=== PATIENT | female | born 1995 | race Asian ===

== ENCOUNTER 2021-04-19 14:07 | Emergency (ER) | payer MEDICAID, OTHER ==
[~2021-04-19] VITALS: Ht 152.4 cm; Wt 58.5 kg
[2021-04-19 15:45] VITALS: BP 100/92
[2021-04-19] MEDS ORDERED: cefTRIAXone SOD 1,000 MG VL IM ONE (16:30)
[2021-04-19] MEDS ORDERED: ACETAMINOPHEN 325 MG TAB PO ONE (16:30)
== END 2021-04-19 16:55 | disposition home or self-care (01) ==
LOC: ER 14:07
DX: M54.41 Lumbago with sciatica, right side (principal); N39.0 Urinary tract infection, site not specified
CPT/HCPCS: 96372; 99283; J0696

== ENCOUNTER 2021-06-05 09:37 | Observation (INO) | payer MEDICAID | END 2021-06-05 13:16 | disposition home or self-care (01) | LOC: LDRP 09:37 | PROVIDERS: ADMIT Obstetrics & Gynecology; ATTEND Obstetrics & Gynecology | DX: O36.5930 Maternal care for other known or suspected poor fetal growth, third trimester, not applicable or unspecified (principal); Z3A.35 35 weeks gestation of pregnancy | CPT/HCPCS: 59025; 76818; 81002; 94760; G0378; G0379 ==

== ENCOUNTER 2021-06-13 08:49 | Observation (INO) | payer MEDICAID ==
[~2021-06-13] VITALS: Ht 157.5 cm; Wt 65.8 kg
== END 2021-06-13 10:00 | disposition home or self-care (01) ==
LOC: LDRP 08:49
PROVIDERS: ADMIT Obstetrics & Gynecology; ATTEND Obstetrics & Gynecology
DX: O36.5930 Maternal care for other known or suspected poor fetal growth, third trimester, not applicable or unspecified (principal); Z3A.36 36 weeks gestation of pregnancy
CPT/HCPCS: 59025; 76818; 81002; 94760; G0378; G0379

== ENCOUNTER 2021-06-20 09:15 | Observation (INO) | payer MEDICAID | END 2021-06-20 10:55 | disposition home or self-care (01) | LOC: LDRP 09:15 | PROVIDERS: ADMIT Obstetrics & Gynecology; ATTEND Obstetrics & Gynecology | DX: O36.5930 Maternal care for other known or suspected poor fetal growth, third trimester, not applicable or unspecified (principal); O99.891 Other specified diseases and conditions complicating pregnancy; M54.9 Dorsalgia, unspecified; Z3A.37 37 weeks gestation of pregnancy | CPT/HCPCS: 59025; 76818; 81002; G0378; G0379 ==

== ENCOUNTER 2021-06-27 11:19 | Inpatient (IN) | payer MEDICAID ==
[~2021-06-27] VITALS: Ht 160 cm; Wt 67.6 kg
[2021-06-30] MEDS ORDERED: PREN-96 PO (15:00)
[2021-07-02] MEDS ORDERED: PROMETHAZINE HCL 25 MG/ML 1ML IV PRN (08:45)
[2021-07-02] MEDS ORDERED: PHISODERM TOP SOLN 240ML BTL TOP PRN (08:45)
[2021-07-02] MEDS ORDERED: BUTORPHANOL TARTRATE 2 MG/1 ML VIAL IV PRN ×2 (08:45)
[2021-07-02] MEDS ORDERED: LIDOCAINE 2%HCL (LOCAL ANESTH.) INJ 20ML MDV IJ PRN (08:45)
[2021-07-02] MEDS ORDERED: LACT. RINGERS/OXYTOCIN 20UNITS 1,000 ML IV ONE (09:36)
[2021-07-02] MEDS ORDERED: LACT. RINGERS/OXYTOCIN 20UNITS 500 ML IV ONE ×2 (09:45→10:15)
[2021-07-02 09:48] LABS: Basophils # (auto) 0 10 ^3/uL (0-0.2); Basophils % (auto) 0.3 % (0.0-2.0); Eosinophils # (auto) 0 10 ^3/uL (0-0.8); Eosinophils % (auto) 0.3 % (0.0-7.0); Hematocrit 35.5 % (36.0-46.0); Hemoglobin 12.1 g/dL (12.2-16.2); Lymphocytes # (auto) 2.9 10 ^3/uL (0.4-5.4); Lymphocytes % (auto) 23.1 % (10.0-50.0); Mean Corpuscular Volume 88.2 fL (80.0-100.0); Monocytes # (auto) 0.8 10 ^3/uL (0-1.3); Monocytes % (auto) 6.5 % (0.0-12.0); Neutrophils # (auto) 8.8 10 ^3/uL (1.6-8.6); Neutrophils % (auto) 69.8 % (37.0-80.0); Red Blood Cells 4.02 10^6/uL (4.0-5.20); Red Cell Distribution Width 13.3 % (11.8-14.3); White Blood Cell 12.6 10^3/uL (4.4-10.8)
[2021-07-02 10:03] LABS: Albumin 2.3 g/dL (3.4-5.0); Calcium 8.5 mg/dL (8.5-10.1); Potassium 3.4 mmol/L (3.5-5.1)
[2021-07-02 10:03] LABS: Alcohol, Urine < 3.0 mg/dL (0-10); Amphetamine Screen, Urine NEGATIVE (NEGATIVE); Barbiturate Scree,Urine NEGATIVE (NEGATIVE); Benzodiazephine Screen, Urine NEGATIVE (NEGATIVE); Cannabinoid Screen, Urine NEGATIVE (NEGATIVE); Cocaine Screen, Urine NEGATIVE (NEGATIVE); Opiate Scree,Urine NEGATIVE (NEGATIVE); Phencyclidine Screen, Urine NEGATIVE (NEGATIVE)
[2021-07-02 10:07] LABS: BUN/Creatinine Ratio 19.2; Bilirubin, Total 0.2 mg/dL (0.2-1.0); Total Protein 6.5 g/dL (6.4-8.2)
[2021-07-02 10:10] LABS: INR 0.91 (0.9-1.15)
[2021-07-02 10:19] LABS: Urine Bacteria NONE SEEN /hpf (None Seen); Urine Blood Negative /uL (Negative); Urine Specific Gravity 1.011 (1.001-1.035); Urine WBC 2 /hpf (0 - 5)
[2021-07-02] MEDS: DERMOPLAST 60ML BOTTLE TOP PRN (10:42)
[2021-07-02] MEDS: WITCH HAZEL-GLYCERIN PAD TOP PRN (10:42)
[2021-07-02] MEDS: LACTATED RINGER'S 1,000 ML IV SCH ×2 (10:43→12:49)
[2021-07-02] MEDS ORDERED: ONDANSETRON ODT 4 MG TAB PO PRN (10:45)
[2021-07-02] MEDS ORDERED: ACETAMINOPHEN 325 MG TAB PO PRN (10:45)
[2021-07-02 12:40] VITALS: BP 102/55
[2021-07-02] MEDS: IBUPROFEN 600 MG TAB PO SCH ×2 (12:54→18:30)
[2021-07-02 13:30] VITALS: BP 91/50
[2021-07-02 14:45] VITALS: BP 113/58
[2021-07-02 19:00] VITALS: BP 95/60
[2021-07-02] MEDS ORDERED: DOCUSATE SOD 100 MG CAP PO SCH (22:00)
[2021-07-02 23:00] VITALS: BP 101/53
[2021-07-03 03:15] VITALS: BP 98/51
[2021-07-03 06:06] LABS: RPR Non Reactive (Non Reactive)
[2021-07-03 06:45] VITALS: BP 101/71
[2021-07-03] MEDS: IBUPROFEN 600 MG TAB PO SCH ×3 (10:13→12:00)
[2021-07-03] MEDS: WITCH HAZEL-GLYCERIN PAD TOP PRN (10:51)
[2021-07-03] MEDS: DERMOPLAST 60ML BOTTLE TOP PRN (10:51)
[2021-07-03 10:59] VITALS: BP 98/55
[2021-07-03] MEDS ORDERED: DOCU-94 PO (12:39)
[2021-07-03] MEDS ORDERED: IBUP600T27 PO (12:39)
[2021-07-03 15:00] VITALS: BP 117/73
== END 2021-07-03 15:55 | disposition home or self-care (01) | DRG 560 ==
LOC: LDRP 07-02 08:05 → OBSVTOIN 07-02 08:35 → LDRP 07-02 08:41
PROVIDERS: ADMIT Obstetrics & Gynecology Obstetrics; ATTEND Obstetrics & Gynecology Obstetrics
PROC: 10E0XZZ Delivery of Products of Conception, External Approach (ICD-10-PCS; principal; 2021-07-02)
DX: O69.81X0 Labor and delivery complicated by cord around neck, without compression, not applicable or unspecified (principal); Z37.0 Single live birth; O99.345 Other mental disorders complicating the puerperium; F53.0 Postpartum depression; Z3A.39 39 weeks gestation of pregnancy; Z20.822 Contact with and (suspected) exposure to COVID-19
CPT/HCPCS: 36415; 59025; 59409; 80053; 80307; 81001; 81002; 82948; 85025; 85610; 85730; 86592; 86850; 86900; 86901; 87426; 94760; 94762; 96360; 96361; 96366; G0378; J2590

== ENCOUNTER 2021-06-30 14:22 | Observation (INO) | payer MEDICAID ==
[2021-06-30] MEDS ORDERED: PREN-96 PO (15:00)
== END 2021-06-30 16:00 | disposition home or self-care (01) ==
LOC: LDRP 14:22
PROVIDERS: ADMIT Obstetrics & Gynecology; ATTEND Obstetrics & Gynecology
DX: O36.5930 Maternal care for other known or suspected poor fetal growth, third trimester, not applicable or unspecified (principal); Z3A.38 38 weeks gestation of pregnancy
CPT/HCPCS: 59025; 76818; 81002; 94760; G0378; G0379